=== PATIENT | female | born 1990 | race Two or more races ===

== ENCOUNTER 2023-05-11 08:05 | Emergency (ER) | payer OTHER ==
[2023-05-11 08:09] VITALS: BP 124/82; PULSE 96; RESP 18; TEMP 98; BMI 30.7
[2023-05-11] MEDS ORDERED: KETOROLAC TROMETHAMINE 30 MG/1 ML VIAL IM ONE (09:21)
[2023-05-11] MEDS ORDERED: ACETAMINOPHEN 500 MG TABLET (FP) PO ONE (09:21)
[2023-05-11] MEDS ORDERED: KETOROLAC TROMETHAMINE 30 MG/1 ML VIAL ONE (09:25)
[2023-05-11] MEDS ORDERED: ACETAMINOPHEN 500 MG TABLET (FP) ONE (09:26)
== END 2023-05-11 11:12 | disposition home or self-care (01) ==
LOC: JERFT 08:05
PROC: 3E0233Z Introduction of Anti-inflammatory into Muscle, Percutaneous Approach (ICD-10-PCS; principal; 2023-05-11)
DX: M54.50 Low back pain, unspecified (principal); M25.512 Pain in left shoulder; M54.2 Cervicalgia; X50.0XXA Overexertion from strenuous movement or load, initial encounter
CPT/HCPCS: 72100-TC-FY; 99284-25